=== PATIENT | female | born 1945 | race African-American/Black ===

== ENCOUNTER 2018-03-29 09:32 | Emergency (ER) | payer OTHER ==
[~2018-03-29] VITALS: Ht 165.1 cm; Wt 93.0 kg
--- NOTE | 2018-03-29 10:18 | RADIOLOGY REPORT ---
EXAMINATION: XR CHEST CLINICAL INFORMATION: Shortness of breath. Presumptive diagnosis of pneumonia, CHF. COMPARISON: None TECHNIQUE: 2 views of the chest were obtained. FINDINGS: The cardiac silhouette is within normal limits in size. Slight ectasia of the aortic arch is seen. There is slight volume loss in the right lung base with crowding of bronchovascular lung markings in the medial right lung base. No focal consolidation, effusion or pneumothorax is seen. Moderate vertebral spondylosis seen throughout the mid and lower thoracic spine. IMPRESSION: Low lung volumes. No acute pulmonary process seen.
[2018-03-29 11:05] LABS: ABSOLUTE BASOPHIL COUNT 0 /CUMM (0.0-0.2); ABSOLUTE EOSINOPHIL COUNT 0.2 /CUMM (0.0-0.7); ABSOLUTE GRANULOCYTE CT 8.9 /CUMM (1.4-6.5); ABSOLUTE LYMPH COUNT 2.1 /CUMM (1.2-3.4); ABSOLUTE MONOCYTE COUNT 0.6 /CUMM (0.10-0.60); BASOPHIL % 0.3 % (0.0-2.0); EOSINOPHIL % 1.5 % (0-5); GRANULOCYTE % 74.9 % (42.2-75.2); HEMATOCRIT 40.4 % (37-47); MEAN CORPUSCULAR HGB 27.6 PG (27.0-31.0); MEAN CORPUSCULAR VOLUME 83.7 FL (81.0-99.0); MEAN PLATELET VOLUME 10.6 FL (7.4-10.4); PLATELET COUNT 231 /CUMM (130-400); RBC DISTRIBUTION WIDTH 12.9 % (11.5-14.5); RED BLOOD CELL CT 4.83 /CUMM (4.20-5.40); WHITE BLOOD CELL COUNT 11.8 /CUMM (4.8-10.8)
[2018-03-29] MEDS ORDERED: MONTELUKAST SOD10 M1 PO (11:31)
[2018-03-29] MEDS ORDERED: IRBESARTAN-HCT1 EAC1 PO (11:32)
[2018-03-29] MEDS ORDERED: PREDNISONE50 M1 PO (15:07)
[2018-03-29] MEDS ORDERED: PROAIR HFA8.5 GM INH (15:07)
[2018-03-29] MEDS ORDERED: ZITHROMAX250 M2 PO (15:07)
--- NOTE | 2018-03-29 15:07 | ED DYSPNEA/ASTHMA COMPLAINT ---
History of Present Illness General Chief Complaint: Dyspnea (COPD, CHF, Other) Stated Complaint: SOB O2SAT 95 RA HR 118 Source: patient Exam Limitations: no limitations Vital Signs & Intake/Output Vital Signs & Intake/Output Vital Signs Date Time Temp Pulse Resp B/P B/P Pulse O2 O2 Flow FiO2 Mean Ox Delivery Rate 03/29 1336 98.6 88 16 156/72 96 Room Air 03/29 1147 97.2 66 18 124/76 98 Room Air 03/29 1145 98 Room Air 03/29 1105 95 03/29 0939 98.6 98 18 128/77 98 Room Air Allergies Coded Allergies: metronidazole (From FLAGYL) (Severe, HIVES 03/29/18) Reconcile Medications Albuterol Sulfate (Proair Hfa) 90 MCG HFA.AER.AD 2 PUF INH Q4-6 PRN PRN COUGH SOB Azithromycin (Zithromax) 250 MG TABLET 1 DP PO AD BRONCHITIS 2 the first day followed by 1 for days 2-5 Irbesartan/Hydrochlorothiazide (Irbesartan-Hctz 300-12.5 MG Tb) 300 MG-12.5 MG TABLET 1 TAB PO DAILY HEART (Reported) Prednisone 50 MG TABLET 1 TAB PO DAILY BRONCHITIS Triage Note: 72 YO FEMALE TO TRIAGE FOR EVAL OF DRY COUGH X 2 MONTHS, STATES SHE HAS MULTIPLE ENVIROMENTAL ALLERGIES AND SHE WAS RECENTLY OUTSIDE AND "IT TRIGGERED MY SOB" DENIES PAIN. RA SATS 98% Triage Nurses Notes Reviewed? yes Onset: Abrupt Duration: day(s): (2-3), changing over time, continues in ED Timing: recent history Severity: mild, moderate Activities at Onset: none Prior Episodes/Possible Cause: occasional episodes Associated Symptoms: cough, wheezing LMP (ages 10-50): unknown : No Patient currently breastfeeds: No HPI: 72-year-old female history of hypertension presents for evaluation of cough, congestion, rhinorrhea and wheezing. Patient reports for the past 2 months she has had a dry cough congestion rhinorrhea and sneezing that she should be due to her allergies. She states she had been taking some allergy medicine with some improvement however starting 2 or 3 days ago she noticed that she was having some wheezing and shortness of breath associated with the allergy symptoms. She quit smoking many years ago she denies a previous history of asthma or COPD. She has no chest pain hemoptysis lower extremity edema dizziness lightheadedness or syncope. She does not have an inhaler. NO FEVER (Mani Guerra) Past History Travel History Traveled to [place] past 21 day No Medical History Any Pertinent Medical History? 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 No (Mani Guerra) Review of Systems Review of Systems Constitutional: Reports: no symptoms. EENTM: Reports: nasal congestion. Respiratory: Reports: see HPI, cough, short of breath, wheezing. Cardiovascular: Reports: no symptoms. GI: Reports: no symptoms. Genitourinary: Reports: no symptoms. Musculoskeletal: Reports: no symptoms. Skin: Reports: no symptoms. Neurological/Psychological: Reports: no symptoms. Hematologic/Endocrine: Reports: no symptoms. Immunologic/Allergic: Reports: no symptoms. All Other Systems: Reviewed and Negative (Mani Guerra) Physical Exam Physical Exam General Appearance: well developed/nourished, no apparent distress, alert, awake Head: atraumatic, normal appearance Eyes: Bilateral: normal appearance, PERRL, EOMI. Ears, Nose, Throat: normal pharynx, hearing grossly normal, nasal congestion ( CLEAR RHINORRHEA ) Neck: normal inspection, supple, full range of motion Respiratory: chest non-tender, no respiratory distress, rhonchi, wheezing Cardiovascular: regular rate/rhythm, normal peripheral pulses Peripheral Pulses: 2+ radial (R), 2+ radial (L) Gastrointestinal: soft, non-tender Extremities: normal inspection, normal range of motion, no edema Neurologic/Psych: no motor/sensory deficits, awake, alert, oriented x 3, normal gait, normal mood/affect Skin: intact, normal color, warm/dry Lymphatic: no anterior cervical juaquin Core Measures ACS in differential dx? No CVA/TIA Diagnosis No Sepsis Present: No Sepsis Focused Exam Completed? No (Mani Guerra) Progress Differential Diagnosis: asthma, AMI, bronchitis, CHF, COPD, pulmonary embolism, pneumonia, pneumothorax, unstable angina Plan of Care: Orders Procedure Date/time Status TROPONIN LEVEL 03/29 1350 Complete EKG 03/29 1350 Active Add-on Test (ER Only) 03/29 1149 Active D-DIMER 03/29 1049 Complete TROPONIN LEVEL 03/29 0958 Complete COMPREHENSIVE METABOLIC PANEL 03/29 0958 Complete CBC WITHOUT DIFFERENTIAL 03/29 09 Complete EKG 03/29 0934 Active Laboratory Tests 03/29/18 1403: Troponin I < 0.01 03/29/18 1049: Anion Gap 12, Estimated GFR > 60, BUN/Creatinine Ratio 17.5, Glucose 156 H, Calcium 10.2, Total Bilirubin 0.5, AST 30, ALT 34, Alkaline Phosphatase 87, Troponin I < 0.01, Total Protein 7.4, Albumin 4.5, Globulin 2.9, Albumin/ Globulin Ratio 1.6, D-Dimer High Sensitivty < 200, CBC w Diff NO MAN DIFF REQ, RBC 4.83, MCV 83.7, MCH 27.6, MCHC 33.0, RDW 12.9, MPV 10.6 H, Gran % 74.9, Lymphocytes % 18.2 L, Monocytes % 5.1, Eosinophils % 1.5, Basophils % 0.3, Absolute Granulocytes 8.9 H, Absolute Lymphocytes 2.1, Absolute Monocytes 0.6, Absolute Eosinophils 0.2, Absolute Basophils 0 Patient is here for evaluation of cough shortness of breath wheezing and congestion. Her symptoms of congestion and rhinorrhea sneezing and cough had been going on for about 2 months but recently got worse and now associated with wheezing. No signs of hypoxia or cyanosis on exam she does have diffuse wheezing and rhonchi. DuoNeb and Solu-Medrol ordered labs EKG chest x-ray ordered. Patient is doing much better after DuoNeb and slight Medrol. Her lung sounds have improved now hypoxia. Lab work is unremarkable including a negative troponin and negative d-dimer. Her chest x-ray is clear. Patient will have a repeat EKG and troponin. Are negative and unchanged. Patient continues to feel better. No hypoxia she' ll be discharged with a prescription for pro-air prednisone and Zithromax. Advised her to rest and plenty fluids antihistamines/Flonase for allergy symptoms discussed return precautions make a follow-up with the primary care doctor patient agrees the plan case discussed with Dr. Sahu agrees Diagnostic Imaging: Viewed by Me: Radiology Read. Discussed w/RAD: Radiology Read. Radiology Impression: PATIENT: ANNA ECKERT PRESENT AGE: 72 PATIENT ACCOUNT NO: [id number] : 46 LOCATION: [facility] ORDERING PHYSICIAN: Mani GREENWOOD SERVICE DATE: 03/29/18 EXAM TYPE: RAD - XRY-CHEST XRAY, TWO VIEWS EXAMINATION: XR CHEST CLINICAL INFORMATION: Shortness of breath. Presumptive diagnosis of pneumonia, CHF. COMPARISON: None TECHNIQUE: 2 views of the chest were obtained. FINDINGS: The cardiac silhouette is within normal limits in size. Slight ectasia of the aortic arch is seen. There is slight volume loss in the right lung base with crowding of bronchovascular lung markings in the medial right lung base. No focal consolidation, effusion or pneumothorax is seen. Moderate vertebral spondylosis seen throughout the mid and lower thoracic spine. IMPRESSION: Low lung volumes. No acute pulmonary process seen. DICTATED BY: Che Kitchen MD DATE/TIME DICTATED:03/29/181011 IMMUNOCHEMIST:JOSÉ MIGUEL DATE/TIME TRANSCRIBED:1011 CONFIDENTIAL, DO NOT COPY WITHOUT APPROPRIATE AUTHORIZATION. < Electronically signed in Other Vendor System> SIGNED BY: Che Kitchen MD 03/29/18 1018 Initial ED EKG: normal sinus rhythm, LVH, left axis deviation, LVH with secondary repolarization abnormality anterior ST elevation likely related to LVH unchanged from previous Prior EKG: unchanged Repeat EKG: unchanged (Mani Guerra) Departure Departure Disposition: HOME OR SELF CARE Condition: Stable Clinical Impression Primary Impression: Acute bronchitis Qualifiers: Bronchitis organism: unspecified organism Qualified Code: J20.9 - Acute bronchitis, unspecified Referrals: Pam Cruz (PCP/Family) Additional Instructions: Take antibiotics and steroids as directed for the full course. Use pro-air inhaler 2 puffs every 4-6 hours as needed for cough or shortness of breath. Make a follow-up woman with her primary care doctor to review all results of today's visit monitor your symptoms return with any concerns. Please go over all results of today's visit with your primary care doctor. Contact your primary care doctor to let them know you were here in the emergency room. There may be nonspecific findings which may not be related to your visit today here in the emergency room but may require further evaluation and chronic monitoring by your primary care doctor. If you had a laceration today the chance of foreign body always remains. You should follow-up with your primary care doctor for recheck in 3-5 days for a wound check. If you had an x-ray done there is a chance that a fracture could have been missed on initial read and you should follow-up with your primary care doctor for repeat x-rays if symptoms persist. If your blood pressure was elevated here in the emergency room please have rechecked by her primary care doctor within the next 48 hours by your primary care doctor. If you were prescribed a narcotic here in the emergency room or any type of controlled substances you're not allowed to drive while taking this medication or operate any type of heavy machinery. Narcotics can make you feel lightheaded dizziness nausea and can cause constipation. You may need to picker a stool softener. Thank you for choosing [facility] emergency room. Please return to the emergency room immediately if you have any other concerns worsening of symptoms. Departure Forms: Customer Survey General Discharge Information Prescriptions: Current Visit Scripts Prednisone 1 TAB PO DAILY #5 TAB Albuterol Sulfate (Proair Hfa) 2 PUF INH Q4-6 PRN PRN COUGH SOB #1 INHAL Azithromycin (Zithromax) 1 DP PO AD #6 TAB 2 the first day followed by 1 for days 2-5 (Mani Guerra) PA/FINISH REPAIR WORKER Co-Sign Statement Statement: ED Attending supervision documentation- I saw and evaluated the patient. I have also reviewed all the pertinent lab results and diagnostic results. I agree with the findings and the plan of care as documented in the PA's/FINISH REPAIR WORKER's documentation. x I have reviewed the ED Record and agree with the PA's/FINISH REPAIR WORKER's documentation. [] Additions or exceptions (if any) to the PAs/FINISH REPAIR WORKER's note and plan are summarized below: [] (Luis Alberto BAUTISTA,Andrade) Critical Care Note Critical Care Note Critical Care Time: non-applicable (Mani Guerra)
[2018-03-29 15:11] VITALS: BP 148/72
== END 2018-03-29 15:15 ==
LOC: ERH 09:32
PROVIDERS: Physician Assistant Medical
DX: J20.9 Acute bronchitis, unspecified (principal); Z87.891 Personal history of nicotine dependence
CPT/HCPCS: 1263; 71046; 93005; 93010; 96374; 96375; J2930